=== PATIENT | male | born 1930 | race Caucasian/White ===

== ENCOUNTER 2016-08-28 18:54 | Emergency (ER) | payer MEDICARE, OTHER ==
[~2016-08-28] VITALS: Ht 170.2 cm; Wt 77.3 kg
[~2016-08-28 18:54] MED LIST: ATOR40TA28 PO; BESI5OS OD; CITA20TA9 PO; CYAN250; DIFL5DRO OD; DORZ10DR13 OD; DUTA.5 PO; LEVO250 PO; METF10002 PO; OMEP20 PO; RAMI10 PO; SITA100 PO
[2016-08-28] MEDS ORDERED: ACET-66 PO (19:16)
[2016-08-28] MEDS ORDERED: LISI-660 PO (19:16)
[2016-08-28] MEDS ORDERED: TAMS0.4C32 PO (19:16)
[2016-08-28] MEDS ORDERED: CEPHALEXIN MONOHYDRATE 500 MG CAPSULE PO ONE (22:45)
[2016-08-28] MEDS ORDERED: ACETAMINOPHEN 500 MG TABLET PO ONE (22:45)
[2016-08-28] MEDS ORDERED: PERTUSS(ACELL),DIPH,TET VAC/PF 0.5 ML VIAL IM ONE (23:00)
[2016-08-28] MEDS ORDERED: BACITRACIN 0.9 GM PACKET OINTMENT TP ONE (23:00)
[2016-08-29 00:33] VITALS: BP 115/72
== END 2016-08-29 01:19 | disposition home or self-care (01) ==
LOC: EMS 18:58
DX: S63.281A Dislocation of proximal interphalangeal joint of left index finger, initial encounter (principal); S39.012A Strain of muscle, fascia and tendon of lower back, initial encounter; T83.091A Other mechanical complication of indwelling urethral catheter, initial encounter; E11.9 Type 2 diabetes mellitus without complications; I10 Essential (primary) hypertension; E78.00 Pure hypercholesterolemia, unspecified; Z88.1 Allergy status to other antibiotic agents; W22.8XXA Striking against or struck by other objects, initial encounter; Y93.89 Activity, other specified; Y92.89 Other specified places as the place of occurrence of the external cause; Y99.8 Other external cause status
CPT/HCPCS: 26770; 51702; 90471; 90715; 99284

== ENCOUNTER 2018-01-15 11:59 | Emergency (ER) | payer MEDICARE, OTHER ==
[~2018-01-15] VITALS: Ht 170.2 cm; Wt 70.5 kg
[~2018-01-15 11:59] MED LIST changes: +ACET-66 PO; -BESI5OS OD; -CITA20TA9 PO; -DIFL5DRO OD; -DORZ10DR13 OD; -DUTA.5 PO; -LEVO250 PO; +LISI-660 PO; -METF10002 PO; +METF10004 PO; -RAMI10 PO; -SITA100 PO; +TAMS0.4C32 PO
[2018-01-15] MEDS ORDERED: ESCI10TA PO (12:20)
[2018-01-15 12:23] LABS: GLUCOSE,POINT OF CARE 96 MG/DL (70-110)
[2018-01-15] MEDS ORDERED: BARIUM SULFATE 0.1% SUSPENSION 450 ML BOTTLE PO ONE (13:00)
[2018-01-15] MEDS ORDERED: ONDANSETRON HCL 4 MG/2 ML VIAL IVP ONE (13:00)
[2018-01-15] MEDS ORDERED: SODIUM CHLORIDE 0.9% 100 ML ONE (13:29)
[2018-01-15] MEDS ORDERED: IOVERSOL 350 MG/ML 100 ML VIAL ONE (13:29)
[2018-01-15 13:32] LABS: BASOPHILS % (AUTO) 0.4 % (0.0-2.0); EOSINOPHILS % (AUTO) 7.9 % (1.0-6.0); HEMATOCRIT 46.1 % (41-53); HEMOGLOBIN 15.8 g/dL (13.5-17.5); LYMPHOCYTES # (AUTO) 1.7 K/uL (1.0-4.8); LYMPHOCYTES % (AUTO) 26.4 % (22.0-44.0); MEAN CORPUSCULAR HEMOGLOBIN 32.1 pg (26.0-34.0); MEAN CORPUSCULAR HGB CONC 34.4 G/dL (31.0-37.0); MEAN CORPUSCULAR VOLUME 93 fL (80-100); MONOCYTES # (AUTO) 0.8 K/uL (0.1-1.0); MONOCYTES % (AUTO) 12.3 % (2.0-9.0); NEUTROPHILS # (AUTO) 3.4 K/uL (1.8-7.7); PLATELET COUNT (AUTO) 203 K/uL (150-450); RED BLOOD CELL COUNT(AUTO) 4.94 MIL/uL (4.50-5.90)
[2018-01-15 13:39] LABS: ANION GAP 6 mmol/L (8-16); CALCIUM, TOTAL 8.7 mg/dL (8.8-10.5); CARBON DIOXIDE 29 mmol/L (22-29); CHLORIDE 105 mmol/L (98-107); CREATININE 1.14 mg/dL (0.60-1.30); GLOMERULAR FILTR. RATE CALC > 60 mL/min (>60); GLUCOSE,RANDOM 92 mg/dL (70-110); POTASSIUM 4.3 mmol/L (3.5-5.1); SODIUM SERUM 140 mmol/L (136-145); UREA NITROGEN, BLOOD 23 mg/dL (7-18)
[2018-01-15 13:49] LABS: ALANINE AMINOTRANSFERASE 38 U/L (12-78); ALBUMIN 3.7 g/dL (3.4-5.0); ALKALINE PHOSPHATASE 206 U/L (46-116); ASPARTATE AMINOTRANSFERASE 41 U/L (15-37)
[2018-01-15 13:52] LABS: LACTIC ACID 0.7 mmol/L (0.4-2.0)
[2018-01-15 14:33] LABS: B-TYPE NATRIURETIC PEPTIDE 346 pg/mL (0-100)
[2018-01-15 14:45] LABS: LIPASE 302 U/L (73-393)
[2018-01-15 14:47] LABS: BILIRUBIN,TOTAL 0.6 mg/dL (0.1-1.0)
[2018-01-15 15:50] LABS: APPEARANCE,URINE CLEAR (CLEAR); BILIRUBIN,URINE NEGATIVE (NEGATIVE); GLUCOSE, URINE (UA) NEGATIVE (NEGATIVE); KETONES,URINE NEGATIVE (NEGATIVE); LEUKOCYTE ESTERASE ,URINE SMALL (NEGATIVE); NITRATE,URINE NEGATIVE (NEGATIVE); OCCULT BLOOD,URINE NEGATIVE (NEGATIVE); PH,URINE 5.5 (5.0-8.0); PROTEIN,URINE TRACE (NEGATIVE); UROBILINOGEN,URINE 0.2 mg/dL (<=1.0)
[2018-01-15 16:00] LABS: RBC,URINE 0-2 /HPF (0-2)
[2018-01-15 16:01] LABS: BACTERIA,URINE Rare /HPF (None Seen); SQUAMOUS EPITHELIAL CELL,UR Few /LPF (None Seen)
[2018-01-15] MEDS ORDERED: SULFAMETHOX/TRIMETH DS 800-160 MG/TABLET PO ONE (17:15)
[2018-01-15] MEDS ORDERED: TAMSULOSIN HCL 0.4 MG CAPSULE PO ONE (17:15)
[2018-01-15 17:30] VITALS: BP 165/88
== END 2018-01-15 17:58 | disposition home or self-care (01) ==
LOC: EMS 12:01
DX: N41.9 Inflammatory disease of prostate, unspecified (principal); N39.0 Urinary tract infection, site not specified; R33.9 Retention of urine, unspecified; I10 Essential (primary) hypertension; E11.9 Type 2 diabetes mellitus without complications; E78.00 Pure hypercholesterolemia, unspecified; Z88.1 Allergy status to other antibiotic agents; Z79.899 Other long term (current) drug therapy; Z90.49 Acquired absence of other specified parts of digestive tract
CPT/HCPCS: 36415; 71045; 74177; 80053; 81001; 82962; 83605; 83690; 83880; 84484; 85025; 87040; 87086; 96374; 99285; J2405; J7050; Q9967

== ENCOUNTER 2019-02-09 09:26 | Emergency (ER) | payer MEDICARE, OTHER ==
[~2019-02-09] VITALS: Ht 170.2 cm; Wt 70.0 kg
[~2019-02-09 09:26] MED LIST changes: -ACET-66 PO; -ATOR40TA28 PO; -CYAN250; +ESCI10TA PO; -LISI-660 PO; -METF10004 PO; -OMEP20 PO
[2019-02-09] MEDS ORDERED: CLOP75TA3 PO (09:37)
[2019-02-09 10:40] VITALS: BP 122/81
== END 2019-02-09 11:45 | disposition home or self-care (01) ==
LOC: EMS 09:27
DX: Z04.3 Encounter for examination and observation following other accident (principal); I10 Essential (primary) hypertension; E11.9 Type 2 diabetes mellitus without complications; E78.00 Pure hypercholesterolemia, unspecified; I25.2 Old myocardial infarction; Z88.1 Allergy status to other antibiotic agents; Z79.899 Other long term (current) drug therapy; W06.XXXA Fall from bed, initial encounter; Y93.89 Activity, other specified; Y92.89 Other specified places as the place of occurrence of the external cause; Y99.8 Other external cause status